=== PATIENT | male | born 1950 | race Caucasian/White ===

== ENCOUNTER 2021-06-12 17:40 | Outpatient (CLI) | payer SELFPAY | END 2021-06-12 17:41 | disposition home or self-care (01) | LOC: COV 17:40 | PROVIDERS: ATTEND Family Medicine | DX: Z20.822 Contact with and (suspected) exposure to COVID-19 (principal) ==

== ENCOUNTER 2021-11-11 18:47 | Outpatient (CLI) | payer OTHER | END 2021-11-11 18:48 | disposition short-term general hospital (02) | LOC: EMS 18:47 | DX: R07.89 Other chest pain (principal); R55 Syncope and collapse; R32 Unspecified urinary incontinence; R06.02 Shortness of breath; R61 Generalized hyperhidrosis | CPT/HCPCS: A0425; A0427 ==